=== PATIENT | male | born 1975 | race Caucasian/White ===

== ENCOUNTER 2017-07-18 01:20 | Emergency (ER) | payer OTHER ==
[~2017-07-18] VITALS: Ht 177.8 cm; Wt 82.9 kg
[~2017-07-18 01:20] MED LIST: ADVIL200 M1 PO
[2017-07-18 03:36] VITALS: BP 130/66
== END 2017-07-18 03:51 | disposition home or self-care (01) ==
LOC: TRA 01:20 → EME 01:20 → TRA 03:51
PROC: 2W3RX1Z Immobilization of Left Lower Leg using Splint (ICD-10-PCS; principal; 2017-07-18)
DX: S90.512A Abrasion, left ankle, initial encounter (principal); S93.402A Sprain of unspecified ligament of left ankle, initial encounter; W31.89XA Contact with other specified machinery, initial encounter; Z88.0 Allergy status to penicillin
CPT/HCPCS: 73610; 73630; 99281; 99284